=== PATIENT | female | born 1950 | race Caucasian/White ===

== ENCOUNTER 2020-03-02 09:13 | Emergency (ER) | payer OTHER, MEDICAID ==
[~2020-03-02] VITALS: Ht 167.6 cm; Wt 68.2 kg
[2020-03-02 09:29] VITALS: BP 149/69
== END 2020-03-02 11:27 ==
LOC: ED 10:06
DX: M79.661 Pain in right lower leg (principal); Z89.511 Acquired absence of right leg below knee
CPT/HCPCS: 99283